=== PATIENT | female | born 1990 | race Caucasian/White ===

== ENCOUNTER 2017-01-05 05:09 | Inpatient (IN) | payer MEDICAID, OTHER ==
[~2017-01-05] VITALS: Ht 160 cm; Wt 96.2 kg
[2017-01-05] MEDS ORDERED: PREN1TAB87 PO (06:42)
[2017-01-05] MEDS ORDERED: METHYLERGONOVINE MALEATE 0.2 MG/ML IM PRN (06:45)
[2017-01-05] MEDS ORDERED: LIDOCAINE HCL 1% 20ML VIAL (Pyxis) INJ INFIL SCH (06:45)
[2017-01-05] MEDS ORDERED: BUTORPHANOL TARTRATE 2 MG/ML VIAL IV PRN (06:45)
[2017-01-05] MEDS ORDERED: NALOXONE HCL 0.4 MG/ML 1ML VIAL IM PRN (06:45)
[2017-01-05] MEDS: LACTATED RINGERS 1,000 ML IV SCH (07:27)
[2017-01-05] MEDS: MAGNESIUM 20 G PREMIX (L & D) 500 ML IV SCH ×2 (07:35→22:17)
[2017-01-05] MEDS: MISOPROSTOL 100MCG TABLET VG PRN ×2 (07:51→20:03)
[2017-01-05 07:58] LABS: CLARITY URINE CLEAR (CLEAR); COLOR URINE YELLOW (YELLOW); GLUCOSE URINE NEGATIVE (NEGATIVE); KETONES URINE NEGATIVE (NEGATIVE); LEUKOCYTE ESTERASE URINE NEGATIVE (NEGATIVE); NITRITE URINE NEGATIVE (NEGATIVE); OCCULT BLOOD URINE NEGATIVE (NEGATIVE); PROTEIN URINE 1+ (NEGATIVE); SPECIFIC GRAVITY URINE 1.016 (1.005-1.030); UROBILINOGEN URINE 0.2 E.U./dL (0.2-1.0)
[2017-01-05 08:04] LABS: BASOPHILS % 0.4 % (0.0-2.0); EOSINOPHILS % 0.8 % (0.0-5.0); HEMATOCRIT. 36.7 % (36.0-48.0); HEMOGLOBIN. 12.1 g/dL (12.0-16.0); LYMPHOCYTES % 11.2 % (20.0-50.0); MEAN CORPUSCULAR HEMOGLOBIN 29.5 pg (28.0-32.0); MEAN CORPUSCULAR VOLUME 89.1 fL (81.0-99.0); MEAN PLATELET VOLUME 9.3 fl (7.4-10.4); MONOCYTES % 5.9 % (2.0-8.0); NEUTROPHILS % 81.7 % (40.0-76.0); PLATELET 185 x1000/uL (130-400); RED BLOOD CELL COUNT 4.12 mill/uL (4.2-5.4); RED CELL DISTRIBUTION WIDTH 15.9 % (11.6-14.6)
[2017-01-05 08:07] LABS: INR 0.9; PARTIAL THROMBOPLASTIN TIME 27.4 sec (23.4-31.0); PROTHROMBIN TIME 9.4 sec (9.4-11.6)
[2017-01-05 08:18] LABS: CARBON DIOXIDE 19 mEq/L (21-32); CHLORIDE 107 mEq/L (98-107)
[2017-01-05 08:34] LABS: HEPATITIS B SURFACE ANTIGEN NEGATIVE; RUBELLA IGG 4.8 IU/mL (4.99-10)
[2017-01-05 08:39] LABS: *AMPHETAMINES SCREEN URINE NEGATIVE (NEGATIVE); *BARBITURATES SCREEN URINE NEGATIVE (NEGATIVE); *BENZODIAZEPINES SCREEN URINE NEGATIVE (NEGATIVE); *COCAINE SCREEN URINE NEGATIVE (NEGATIVE); CANNABINOID URINE SCREEN NEGATIVE (NEGATIVE); METHADONE URINE SCREEN NEGATIVE (NEGATIVE); OPIATES URINE SCREEN NEGATIVE (NEGATIVE); PHENCYCLIDINE URINE SCREEN NEGATIVE (NEGATIVE)
[2017-01-05] MEDS ORDERED: LABETALOL 5MG/ML SYR 20 MG/4 ML SYRINGE IV PRN (16:00)
[2017-01-05] MEDS: DEXT 5%/LACTATED RINGERS 1,000 ML IV SCH (16:10)
[2017-01-06] MEDS: DEXT 5%/LACTATED RINGERS 1,000 ML IV SCH (02:04)
[2017-01-06] MEDS: MISOPROSTOL 100MCG TABLET VG PRN (02:05)
[2017-01-06] MEDS: DEXT 5%/LR + PITOCIN 20UNITS/L 1,000 ML IV SCH (09:33)
[2017-01-06] MEDS ORDERED: FENTANYL CITRATE/PF 50MCG/ML 2ML VIAL ONE ×4 (13:00→22:43)
[2017-01-06] MEDS ORDERED: BUPIVACAINE HCL/PF 0.25% (2.5MG/ML) 10ML ONE (13:02)
[2017-01-06] MEDS ORDERED: DIPHENHYDRAMINE 50MG/ML VIAL IM PRN (13:45)
[2017-01-06] MEDS ORDERED: ONDANSETRON HCL 4MG/2ML VIAL IV PRN (13:45)
[2017-01-06] MEDS ORDERED: BUPIVACAINE HCL/NS/PF EPIDURAL 100 ML EP SCH (13:45)
[2017-01-06] MEDS ORDERED: LIDOCAINE HCL/PF 2% 20MG/ML 5 ML/VIAL ONE (18:02)
[2017-01-06] MEDS: MAGNESIUM 20 G PREMIX (L & D) 500 ML IV SCH (18:38)
[2017-01-06] MEDS ORDERED: BUPIVACAINE HCL/NS/PF EPIDURAL 100 ML EP ONE (19:06)
[2017-01-06] MEDS: LACTATED RINGERS 1,000 ML IV SCH (20:57)
[2017-01-06] MEDS ORDERED: AMPICILLIN 2,000 MG in SODIUM CHLORIDE 0.9% 100 ML IV NR (21:30)
[2017-01-06] MEDS ORDERED: MORPHINE SULFATE/PF 1MG/ML 10ML AMP ONE (22:43)
[2017-01-06] MEDS ORDERED: MIDAZOLAM HCL 2 MG/2 ML VIAL ONE (22:43)
[2017-01-06] MEDS ORDERED: CEFAZOLIN SODIUM 1000MG/VIAL ONE (22:45)
[2017-01-06] MEDS ORDERED: SODIUM BICARBONATE 4% (2.4MEQ) 5ML VIAL IV ONE (22:45)
[2017-01-06] MEDS ORDERED: OXYTOCIN 10 UNITS/ML 1ML ONE (22:45)
[2017-01-06] MEDS ORDERED: DEXAMETHASONE 4MG/ML 1ML VIAL ONE (22:45)
[2017-01-06] MEDS ORDERED: SODIUM CHLORIDE 0.9% 10ML VIAL ONE (22:45)
[2017-01-06] MEDS ORDERED: NALOXONE HCL 0.4 MG/ML 1ML VIAL IV NR (23:00)
[2017-01-06] MEDS ORDERED: CEFAZOLIN 2,000 MG in DEXT 5% WATER 100 ML IV SCH (23:00)
[2017-01-06] MEDS ORDERED: LACTATED RINGERS 1,000 ML IV SCH (23:15)
[2017-01-06] MEDS ORDERED: METHYLERGONOVINE MALEATE 0.2 MG/ML IM NR (23:15)
[2017-01-06] MEDS ORDERED: LIDOCAINE HCL 1% 20ML VIAL (Pyxis) INJ INFIL SCH (23:52)
[2017-01-07] MEDS ORDERED: DEXT 5%/LR + PITOCIN 20UNITS/L 1,000 ML IV SCH (00:52)
[2017-01-07] MEDS ORDERED: RHO(D) IMMUNE GLOBULIN 300 MCG/SYR IM PRN (01:00)
[2017-01-07] MEDS ORDERED: IBUPROFEN 400MG TABLET PO PRN (01:00)
[2017-01-07] MEDS ORDERED: ACETAMINOPHEN WITH CODEINE 300/30MG TABLET PO PRN (01:00)
[2017-01-07] MEDS ORDERED: BENZOCAINE/LANOLIN/ALOE VERA SPRAY TOP PRN (01:00)
[2017-01-07] MEDS: DEXT 5%/LR + PITOCIN 20UNITS/L 1,000 ML IV SCH (01:35)
[2017-01-07 03:00] VITALS: BP 138/85
[2017-01-07 03:45] VITALS: BP 135/83
[2017-01-07] MEDS ORDERED: AMPICILLIN 1,000 MG in SODIUM CHLORIDE 0.9% 50 ML IV SCH (04:00)
[2017-01-07 07:34] VITALS: BP 132/80
[2017-01-07 08:33] LABS: BASOPHILS % 0.5 % (0.0-2.0); EOSINOPHILS % 0.1 % (0.0-5.0); HEMATOCRIT. 33.2 % (36.0-48.0); HEMOGLOBIN. 10.8 g/dL (12.0-16.0); LYMPHOCYTES % 9.3 % (20.0-50.0); MEAN CORPUSCULAR HEMOGLOBIN 29.3 pg (28.0-32.0); MEAN PLATELET VOLUME 7.9 fl (7.4-10.4); MONOCYTES % 7.3 % (2.0-8.0); NEUTROPHILS % 82.8 % (40.0-76.0); PLATELET 161 x1000/uL (130-400); RED BLOOD CELL COUNT 3.68 mill/uL (4.2-5.4); RED CELL DISTRIBUTION WIDTH 16.2 % (11.6-14.6)
[2017-01-07] MEDS: IBUPROFEN 800MG TABLET PO PRN (09:03)
[2017-01-07 12:32] LABS: *AMPHETAMINES SCREEN URINE NEGATIVE (NEGATIVE); *BARBITURATES SCREEN URINE NEGATIVE (NEGATIVE); *BENZODIAZEPINES SCREEN URINE NEGATIVE (NEGATIVE); *COCAINE SCREEN URINE NEGATIVE (NEGATIVE); CANNABINOID URINE SCREEN NEGATIVE (NEGATIVE); METHADONE URINE SCREEN NEGATIVE (NEGATIVE); OPIATES URINE SCREEN NEGATIVE (NEGATIVE); PHENCYCLIDINE URINE SCREEN NEGATIVE (NEGATIVE)
[2017-01-07 16:14] VITALS: BP 136/84
[2017-01-07 20:00] VITALS: BP 128/72
[2017-01-08 04:00] VITALS: BP 120/76
[2017-01-08 08:00] VITALS: BP 125/74
[2017-01-08] MEDS: IBUPROFEN 800MG TABLET PO PRN (09:06)
[2017-01-08 17:05] VITALS: BP 130/62
[2017-01-08 23:20] VITALS: BP 128/75
[2017-01-09 08:10] VITALS: BP 124/61
[2017-01-09] MEDS ORDERED: INFLUENZA VIRUS VACCINE 0.5ML SYR IM ONE (11:15)
[2017-01-09] MEDS ORDERED: TETANUS, DIPHTHERIA, PERTUSSIS VAC/PF 0.5ML (>7YR OLD) IM ONE (11:15)
== END 2017-01-09 10:30 | disposition home or self-care (01) | DRG 560 ==
LOC: L&D 05:09 → OBSVTOIN 05:09 → L&D 15:29 → 7EST PP/OB 01-07 02:24
PROVIDERS: ADMIT Obstetrics & Gynecology; ATTEND Obstetrics & Gynecology
PROC: 00HU33Z Insertion of Infusion Device into Spinal Canal, Percutaneous Approach (ICD-10-PCS; 2017-01-07)
PROC: 0W8NXZZ Division of Female Perineum, External Approach (ICD-10-PCS; 2017-01-07)
PROC: 10E0XZZ Delivery of Products of Conception, External Approach (ICD-10-PCS; principal; 2017-01-07 00:11)
DX: O14.94 Unspecified pre-eclampsia, complicating childbirth (principal); O24.420 Gestational diabetes mellitus in childbirth, diet controlled; O13.4 Gestational [pregnancy-induced] hypertension without significant proteinuria, complicating childbirth; Z37.0 Single live birth; Z3A.39 39 weeks gestation of pregnancy; Z83.3 Family history of diabetes mellitus
CPT/HCPCS: 36415; 76805; 80053; 80305; 81001; 82962; 83735; 84550; 85025; 85384; 85610; 85730; 86592; 86703; 86762; 86850; 86900; 87040; 87086; 87340; 96366; 99281; A4216; G0378; J0290; J0690; J1100; J2250; J2274; J2310; J2590; J3010; J3475; J3490; J7040; J7050; J7060; J7120; J7121; A4315

== ENCOUNTER 2017-08-16 13:33 | Emergency (ER) | payer MEDICAID ==
[~2017-08-16] VITALS: Ht 160 cm; Wt 91.0 kg
[2017-08-16 14:35] LABS: CLARITY URINE CLEAR (CLEAR); COLOR URINE YELLOW (YELLOW); KETONES URINE NEGATIVE (NEGATIVE); LEUKOCYTE ESTERASE URINE NEGATIVE (NEGATIVE); NITRITE URINE NEGATIVE (NEGATIVE); OCCULT BLOOD URINE 1+ (NEGATIVE); PH URINE 6.5 (4.5-8.0); PROTEIN URINE NEGATIVE (NEGATIVE); SPECIFIC GRAVITY URINE 1.027 (1.005-1.030); UROBILINOGEN URINE 0.2 E.U./dL (0.2-1.0)
[2017-08-16 14:36] LABS: CHLORIDE 103 mEq/L (98-107)
[2017-08-16 14:37] LABS: BASOPHILS % 0.5 % (0.0-2.0); EOSINOPHILS % 1.6 % (0.0-5.0); HEMATOCRIT. 38.6 % (36.0-48.0); HEMOGLOBIN. 12.9 g/dL (12.0-16.0); LYMPHOCYTES % 33.4 % (20.0-50.0); MEAN CORPUSCULAR HEMOGLOBIN 30.3 pg (28.0-32.0); MEAN CORPUSCULAR VOLUME 90.6 fL (81.0-99.0); MEAN PLATELET VOLUME 7.6 fl (7.4-10.4); MONOCYTES % 4.7 % (2.0-8.0); NEUTROPHILS % 59.8 % (40.0-76.0); PLATELET 278 x1000/uL (130-400); RED BLOOD CELL COUNT 4.25 mill/uL (4.2-5.4); RED CELL DISTRIBUTION WIDTH 14.5 % (11.6-14.6)
[2017-08-16 15:00] LABS: B-HCG QUANTITATIVE 7264 mIU/mL (<3)
[2017-08-16 18:58] VITALS: BP 122/67
== END 2017-08-16 20:53 | disposition home or self-care (01) ==
LOC: ER 14:25
DX: O02.1 Missed abortion (principal); Z3A.08 8 weeks gestation of pregnancy
CPT/HCPCS: 36415; 76801; 80053; 81003; 81025; 84702; 85025; 86850; 86900; 99285

== ENCOUNTER 2018-08-08 17:01 | Inpatient (IN) | payer MEDICAID ==
[~2018-08-08] VITALS: Ht 162.6 cm; Wt 103.4 kg
[2018-08-08 18:21] LABS: BASOPHILS % 0.1 % (0.0-2.0); EOSINOPHILS % 0.7 % (0.0-5.0); HEMOGLOBIN. 11.7 g/dL (12.0-16.0); LYMPHOCYTES % 21.7 % (20.0-50.0); MEAN CORPUSCULAR HEMOGLOBIN 29.2 pg (28.0-32.0); MEAN CORPUSCULAR VOLUME 89.8 fL (81.0-99.0); MEAN PLATELET VOLUME 8.2 fl (7.4-10.4); MONOCYTES % 4.8 % (2.0-8.0); NEUTROPHILS % 72.7 % (40.0-76.0); PLATELET 209 x1000/uL (130-400); RED BLOOD CELL COUNT 4.01 mill/uL (4.2-5.4); RED CELL DISTRIBUTION WIDTH 16.5 % (11.6-14.6)
[2018-08-08 18:26] LABS: CHLORIDE 113 mEq/L (98-107)
[2018-08-08 18:32] LABS: CLARITY URINE CLEAR (CLEAR); COLOR URINE YELLOW (YELLOW); INR 0.9; KETONES URINE TRACE (NEGATIVE); LEUKOCYTE ESTERASE URINE TRACE (NEGATIVE); NITRITE URINE NEGATIVE (NEGATIVE); OCCULT BLOOD URINE NEGATIVE (NEGATIVE); PH URINE 7.5 (4.5-8.0); PROTEIN URINE NEGATIVE (NEGATIVE); PROTHROMBIN TIME 9.4 sec (9.6-11.0); SPECIFIC GRAVITY URINE 1.008 (1.005-1.030); UROBILINOGEN URINE 0.2 E.U./dL (0.2-1.0)
[2018-08-08] MEDS ORDERED: PREN1TAB78 MT (20:49)
[2018-08-08] MEDS ORDERED: FERR-71 MT (20:49)
[2018-08-08] MEDS: POTASSIUM CHLORIDE 20MEQ TABLET SR PO SCH (20:56)
[2018-08-09] MEDS ORDERED: DEXT 5%/LR + PITOCIN 20UNITS/L 1,000 ML IV SCH (00:06)
[2018-08-09] MEDS ORDERED: LACTATED RINGERS 1,000 ML IV SCH (00:06)
[2018-08-09] MEDS ORDERED: MISOPROSTOL 100MCG TABLET VG PRN ×2 (00:15→04:15)
[2018-08-09] MEDS ORDERED: LIDOCAINE HCL 1% 20ML VIAL (Pyxis) INJ INFIL SCH (00:15)
[2018-08-09] MEDS ORDERED: METHYLERGONOVINE MALEATE 0.2 MG/ML IM PRN (00:15)
[2018-08-09] MEDS ORDERED: NALOXONE HCL 0.4 MG/ML 1ML VIAL IM PRN (00:15)
[2018-08-09 00:37] LABS: INR 0.9; PARTIAL THROMBOPLASTIN TIME 24.5 sec (23.4-31.0); PROTHROMBIN TIME 9.5 sec (9.6-11.0)
[2018-08-09 01:32] LABS: HEPATITIS B SURFACE ANTIGEN NEGATIVE
[2018-08-09] MEDS: POTASSIUM CHLORIDE 20MEQ TABLET SR PO SCH (03:07)
[2018-08-09] MEDS: LACTATED RINGERS 1,000 ML IV SCH ×2 (07:10→12:34)
[2018-08-09 15:40] LABS: *BARBITURATES SCREEN URINE NEGATIVE (NEGATIVE); *BENZODIAZEPINES SCREEN URINE NEGATIVE (NEGATIVE); *COCAINE SCREEN URINE NEGATIVE (NEGATIVE); METHADONE URINE SCREEN NEGATIVE (NEGATIVE)
[2018-08-09 15:41] LABS: CANNABINOID URINE SCREEN NEGATIVE (NEGATIVE); OPIATES URINE SCREEN NEGATIVE (NEGATIVE); PHENCYCLIDINE URINE SCREEN NEGATIVE (NEGATIVE)
[2018-08-09 15:43] LABS: *AMPHETAMINES SCREEN URINE NEGATIVE (NEGATIVE)
[2018-08-09] MEDS: BUTORPHANOL TARTRATE 2 MG/ML VIAL IV PRN (23:41)
[2018-08-10] MEDS ORDERED: ROPIVACAINE HCL/PF EPIDURAL 200 ML EPI SCH
[2018-08-10 03:15] LABS: HEMATOCRIT 37.4 % (36.0-48.0); HEMOGLOBIN 12.1 g/dL (12.0-16.0); MEAN CORPUSCULAR HEMOGLOBIN 29.3 pg (28.0-32.0); MEAN CORPUSCULAR VOLUME 90.8 fL (81.0-99.0); PLATELET 216 x1000/uL (130-400); RED BLOOD CELL COUNT 4.12 mill/uL (4.2-5.4); RED CELL DISTRIBUTION WIDTH 16.9 % (11.6-14.6)
[2018-08-10] MEDS: BUTORPHANOL TARTRATE 2 MG/ML VIAL IV PRN (03:15)
[2018-08-10] MEDS ORDERED: DEXT 5%/LR + PITOCIN 20UNITS/L 1,000 ML IV SCH (06:55)
[2018-08-10] MEDS ORDERED: IBUPROFEN 400MG TABLET PO PRN (07:00)
[2018-08-10] MEDS ORDERED: RHO(D) IMMUNE GLOBULIN 300 MCG/SYR IM PRN (07:00)
[2018-08-10] MEDS ORDERED: ACETAMINOPHEN WITH CODEINE 300/30MG TABLET PO PRN (07:00)
[2018-08-10] MEDS ORDERED: BENZOCAINE/LANOLIN/ALOE VERA SPRAY TOP PRN (07:00)
[2018-08-10] MEDS: IBUPROFEN 800MG TABLET PO PRN (08:07)
[2018-08-10 09:00] VITALS: BP 124/84
[2018-08-10 09:30] VITALS: BP 109/67
[2018-08-10 15:33] VITALS: BP 111/60
[2018-08-10 20:00] VITALS: BP 132/85
[2018-08-11 04:00] VITALS: BP 122/85
[2018-08-11] MEDS: IBUPROFEN 800MG TABLET PO PRN ×2 (05:23→13:10)
[2018-08-11 06:51] LABS: BASOPHILS % 0.1 % (0.0-2.0); EOSINOPHILS % 0.3 % (0.0-5.0); HEMATOCRIT. 31.3 % (36.0-48.0); HEMOGLOBIN. 10.3 g/dL (12.0-16.0); LYMPHOCYTES % 8.1 % (20.0-50.0); MEAN CORPUSCULAR HEMOGLOBIN 29.5 pg (28.0-32.0); MEAN CORPUSCULAR VOLUME 90.2 fL (81.0-99.0); MEAN PLATELET VOLUME 8.3 fl (7.4-10.4); MONOCYTES % 6.5 % (2.0-8.0); PLATELET 156 x1000/uL (130-400); RED BLOOD CELL COUNT 3.47 mill/uL (4.2-5.4); RED CELL DISTRIBUTION WIDTH 16.7 % (11.6-14.6)
[2018-08-11 08:30] VITALS: BP 123/80
[2018-08-11 16:37] VITALS: BP 122/80
[2018-08-11 20:00] VITALS: BP 128/85
[2018-08-12] MEDS: IBUPROFEN 800MG TABLET PO PRN ×2 (02:41→09:09)
[2018-08-12 04:00] VITALS: BP 113/70
== END 2018-08-12 11:40 | disposition home or self-care (01) | DRG 560 ==
LOC: OBSVTOIN 17:01 → 8 EST LDRP 17:01 → 8EST 08-10 09:33
PROVIDERS: ADMIT Obstetrics & Gynecology; ATTEND Obstetrics & Gynecology
PROC: 10E0XZZ Delivery of Products of Conception, External Approach (ICD-10-PCS; principal; 2018-08-10)
PROC: 0KQM0ZZ Repair Perineum Muscle, Open Approach (ICD-10-PCS; 2018-08-10)
PROC: 3E0R3BZ Introduction of Anesthetic Agent into Spinal Canal, Percutaneous Approach (ICD-10-PCS; 2018-08-10)
PROC: 00HU33Z Insertion of Infusion Device into Spinal Canal, Percutaneous Approach (ICD-10-PCS; 2018-08-10)
DX: O13.4 Gestational [pregnancy-induced] hypertension without significant proteinuria, complicating childbirth (principal); O24.420 Gestational diabetes mellitus in childbirth, diet controlled; O70.1 Second degree perineal laceration during delivery; Z3A.39 39 weeks gestation of pregnancy; Z37.0 Single live birth; Z83.3 Family history of diabetes mellitus
CPT/HCPCS: 36415; 76805; 80305; 82962; 84550; 85027; 85384; 86592; 86703; 86762; 86850; 86900; 87340; 99281; G0378; J0595; J2590; J2795; J7120